=== PATIENT | male | born 1965 | race Caucasian/White ===

== ENCOUNTER 2017-04-23 08:31 | Day surgery (SDC) | payer OTHER ==
--- NOTE | 2017-04-17 10:40 | PCM.ANEPRE ---
Anesthesia Pre-Op Review Reason for Review: SURGEON'S REQUEST "STOP BANG 03/18" Anesthesia Recommendations: Proceed with Procedure Additional Comments 51 yo male with RAD, STOP BANG of 03/18 scheduled for Left shoulder surgery. BMI 23. No prior sleep study. Otherwise healthy. Likely ok to proceed without further evaluation. No need for preop sleep study. Chart Reviewed by: Howard Johnson MD Apr 17, 2017 10:40
[2017-04-23] VITALS (11 sets, daily range): BP systolic 100–124; BP diastolic 59–81; PULSE 58–83; RESP 10–26; O2SAT 94–99
[~2017-04-23] VITALS: Ht 175.3 cm; Wt 69.0 kg
[2017-04-23] MEDS: Lactated Ringer's 1,000 ML IV SCH ×2 (05:38→10:20)
[~2017-04-23 08:31] MED LIST: ADV250INH IH; ALBU8.5H2 INHALATION; ALLERCLEAR PO; ARIP2TAB11 PO; CITA40TA13 PO; FIBERCON PO; HYDR-4003 PO; Lactated Ringer's 1,000 ML IV SCH; SULF1TAB7 PO; Vancomycin Serum Trough XX ONE
[2017-04-23] MEDS ORDERED: Propofol 10,000 mCg/mL 20 mL Inj ONE (08:32)
[2017-04-23] MEDS ORDERED: Phenylephrine 10,000 mCg/mL Inj ONE (08:32)
[2017-04-23] MEDS ORDERED: Lidocaine PF 1% 30 mL Inj ONE (08:32)
[2017-04-23] MEDS ORDERED: Phenylephrine/NS-PF 100 mCg/mL 5 mL Syringe IVPUSH ONE (08:32)
[2017-04-23] MEDS ORDERED: Ondansetron 2 mg/mL 2 mL Inj ONE (08:32)
[2017-04-23] MEDS ORDERED: Succinylcholine Chloride 20 mg/mL 5 mL Inj ONE (08:32)
[2017-04-23] MEDS ORDERED: Glycopyrrolate 0.2 MG/ML 1mL Inj ONE (08:32)
[2017-04-23] MEDS ORDERED: EPHEDrine/NS 5 mg/mL 5 mL Syringe ONE (08:32)
[2017-04-23] MEDS ORDERED: fentaNYL-PF 50 mCg/mL 2 mL Inj ONE (08:32)
[2017-04-23] MEDS: Vancomycin Inj 1,000 MG in IV Premix 1 EACH IV SCH ×2 (08:50→10:20)
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
[2017-04-23] MEDS ORDERED: oxyCODONE-Acetamin 5-325 mg Tablet PO PRN (09:45)
[2017-04-23] MEDS ORDERED: Lactated Ringer's 500 ML IV PRN (10:21)
[2017-04-23] MEDS ORDERED: Lactated Ringer's 1,000 ML IV SCH (10:21)
[2017-04-23] MEDS ORDERED: Phenylephrine 10,000 mCg/mL Inj IVPUSH PRN (10:25)
[2017-04-23] MEDS ORDERED: hydrALAZINE 20 mg/mL Inj IVPUSH PRN (10:25)
[2017-04-23] MEDS ORDERED: EPHEDrine Sulfate 50 mg/mL Inj IVPUSH PRN (10:25)
[2017-04-23] MEDS ORDERED: MetoCLOpramide 5 mg/mL 2 mL Inj IVPUSH PRN (10:25)
[2017-04-23] MEDS ORDERED: HYDROmorphone 1 mg/mL Inj IVPUSH PRN (10:25)
[2017-04-23] MEDS ORDERED: Ondansetron 2 mg/mL 2 mL Inj IVPUSH PRN (10:25)
[2017-04-23] MEDS ORDERED: Labetalol 5 mg/mL 4 mL Inj IV PRN (10:25)
[2017-04-23] MEDS ORDERED: fentaNYL-PF 50 mCg/mL 2 mL Inj IVPUSH PRN (10:25)
[2017-04-23] MEDS ORDERED: Atropine 0.4 mg/mL Inj IVPUSH PRN (10:25)
[2017-04-23] MEDS ORDERED: Dexamethasone 4 mg/mL Inj IVPUSH PRN (10:25)
[2017-04-23] MEDS ORDERED: Lactated Ringer's 1,000 ML IV ONE (11:29)
--- NOTE | 2017-04-23 13:02 | PCM.ANEP1 ---
Post Anesthesia PACU Phase 1 Assessment Date of Service: Apr 23, 2017 Vital Signs Vital Signs Date Time Temp Pulse Resp B/P Pulse Ox O2 Delivery O2 Flow Rate FiO2 04/23/17 12:55 71 14 106/75 97 Room Air 04/23/17 12:50 76 14 117/81 98 Simple Mask 8 04/23/17 12:48 36.5 82 10 124/78 99 Simple Mask 8 04/23/17 09:08 36.6 63 111/70 Anesthetic Administered: GA, Regional Block Level of Alertness: Awake, talking MURPHY's with Equal Strength: No Pain: No Nausea or Vomiting: No CV Function & Hydration Stable: Yes Airway Device: Oxygen Delivery: Room Air Lungs: Clear to Auscultation, Normal Air Movement PACU Phase 2 Assessment Complications: No Follow up Care: No Patient Instructions Provided: N/A Joshua Brown MD Apr 23, 2017 13:02
--- NOTE | 2017-04-23 14:06 | OP ---
[address] [address] OPERATIVE REPORT PATIENT: ISAC WANG : 1965 MR#: [id number] ADMIT: 04/23/2017 JOB ID: [id number] DATE OF SURGERY: 04/23/2017 PREOPERATIVE DIAGNOSIS(ES): 1. Left shoulder high-grade partial thickness rotator cuff tear. 2. Left shoulder impingement syndrome. 3. Left shoulder acromioclavicular arthritis. 4. Left shoulder bicipital tendinopathy. POSTOPERATIVE DIAGNOSIS(ES): 1. Left shoulder high-grade partial thickness rotator cuff tear. 2. Left shoulder impingement syndrome. 3. Left shoulder acromioclavicular arthritis. PROCEDURES: 1. Left shoulder arthroscopy and rotator cuff repair. 2. Left shoulder arthroscopy, subacromial decompression, and acromioplasty. 3. Left shoulder arthroscopy with distal clavicle excision. 4. Left shoulder arthroscopy with debridement of labrum. SURGEON: Gee Beltre D.O. ASSISTANTS: Hilario Fowler PA-C, The assistance of Hilario Fowler PA-C, was necessary for help with manipulation of the intra-articular equipment, including the camera and for closure at the conclusion of the case. BRIEF HISTORY: The patient is a 51-year-old male with a longstanding history of left shoulder pain. He failed conservative treatment including therapy exercises, injection and presented with an MRI that did demonstrate a rotator cuff tear per the Radiology read, per my read. I explained to the patient that it looked more like a high-grade partial thickness rotator cuff tear. With this failure of conservative treatment, I gave the patient the option to proceed with left shoulder arthroscopy with rotator cuff repair versus debridement, subacromial decompression, distal clavicle excision and possible open biceps tenodesis as he also demonstrated signs of bicipital tendinopathy. He understood the risks include, but are not limited to, neurovascular injury, tendon injury, infection, failure of fixation, stiffness, persistent pain, all of which may require further intervention. Patient had all questions answered. Consent was signed and placed in the chart. PROCEDURE IN DETAIL: The patient was brought to the operative suite and placed supine on the OR table. Surgical time-out was performed. Everyone in the room was in agreement. After appropriate anesthesia was obtained, the patient was placed in the modified beach chair position with all prominences well padded. Left upper extremity was then prepped and draped in sterile fashion. The left upper extremity was then placed in the arthroscopic arm esparza. A standard posterior viewing portal was then developed in typical fashion. On gross observation, there was fraying of the superior aspect of the labrum. The biceps appeared to be free of any tendinopathy. Chondral surface of the humeral head and the glenoid were free of any chondromalacia. The undersurface of the rotator cuff consisting of the supraspinatus demonstrated partial thickness tearing. An anterior working portal was then developed in typical fashion, a shaver introduced to perform a limited debridement of the labrum. The labral anchor was intact at the superior aspect of the labrum. Thus, no further procedure, including a tenodesis was needed. The undersurface of the rotator cuff that demonstrated the high-grade partial thickness tear was marked with a Prolene suture. The camera was then brought in the subacromial space. There was significant hypertrophic bursa and lateral working portal was then created. Shaver introduced to perform an extensive bursectomy allowing for visualization of the bursal surface of the rotator cuff. The suture marked the anterior aspect of the supraspinatus. Demonstrated significant high-grade partial thickness tearing and the probe easily passed through the tenuous tissue. Thus, the partial-thickness tear was taken down. The tuberosity was then debrided for placement of an anchor just lateral to the articular surface of the humeral head for repair of the rotator cuff. A single Arthrex 4.5 mm corkscrew anchor was then advanced at the greater tuberosity insertion, just lateral to the articular surface of the humeral head and the four suture limbs shuttled through the rotator cuff and tied for an excellent single row repair. Attention was then turned towards the undersurface of the acromion and a surface electrocautery wand was used to further delineate the undersurface of the acromion. There was a large underhanging acromion within the subacromial space. The bur next was utilized to perform an acromioplasty. The bur was then brought through an anterior portal and used to perform a distal clavicle excision of about 8-10 mm in width. The arthroscopic equipment was then removed from the joint, the portals closed with 4-0 nylon. The patient was then placed until a bulky dressing and into a shoulder immobilizer. ESTIMATED BLOOD LOSS: Less than 25 cc. COMPLICATIONS: None. DISPOSITION: The patient tolerated the procedure well. Anesthesia was reversed. The patient was transferred to PACU and to recovery room. POSTOPERATIVE PLAN: The patient will follow up in office in two weeks. We will remove the patient's sutures at that time and have him start working with physical therapy, mainly with passive range of motion for four weeks. It will be six weeks before the immobilizer is discontinued and we will progress him further with active and active assisted range of motion.
== END 2017-04-23 23:59 | disposition home or self-care (01) ==
LOC: SAS 08:31
PROVIDERS: ATTEND Orthopaedic Surgery
DX: M75.112 Incomplete rotator cuff tear or rupture of left shoulder, not specified as traumatic (principal); M75.42 Impingement syndrome of left shoulder; M19.012 Primary osteoarthritis, left shoulder; M75.22 Bicipital tendinitis, left shoulder; M67.922 Unspecified disorder of synovium and tendon, left upper arm; F41.8 Other specified anxiety disorders; N40.1 Benign prostatic hyperplasia with lower urinary tract symptoms; N13.8 Other obstructive and reflux uropathy; J45.909 Unspecified asthma, uncomplicated; F17.210 Nicotine dependence, cigarettes, uncomplicated; Z86.14 Personal history of Methicillin resistant Staphylococcus aureus infection; Z87.442 Personal history of urinary calculi
CPT/HCPCS: 29824; 29826; 29827; C1713; J0171; J0330; J2250; J2370; J2405; J3010; J3370; J7120